=== PATIENT | male | born 1965 | race Caucasian/White ===

== ENCOUNTER 2018-06-07 11:31 | Outpatient (CLI) | payer BC ==
[2017-05-27 12:04] VITALS: O2SAT 93
== END 2018-06-07 11:32 | disposition home or self-care (01) ==
LOC: CONVCARE 11:31
PROVIDERS: ATTEND Orthopaedic Surgery
DX: S82.142D Displaced bicondylar fracture of left tibia, subsequent encounter for closed fracture with routine healing (principal)
CPT/HCPCS: 73562

== ENCOUNTER 2018-06-21 11:04 | Outpatient (CLI) | payer BC ==
[2017-05-27 12:04] VITALS: O2SAT 93
== END 2018-06-21 11:05 | disposition home or self-care (01) ==
LOC: CONVCARE 11:04
PROVIDERS: ATTEND Orthopaedic Surgery
DX: S82.142D Displaced bicondylar fracture of left tibia, subsequent encounter for closed fracture with routine healing (principal)
CPT/HCPCS: 73562

== ENCOUNTER 2018-07-12 10:12 | Outpatient (CLI) | payer BC ==
[2017-05-27 12:04] VITALS: O2SAT 93
== END 2018-07-12 10:13 | disposition home or self-care (01) ==
LOC: CONVCARE 10:12
PROVIDERS: ATTEND Orthopaedic Surgery
DX: S82.142D Displaced bicondylar fracture of left tibia, subsequent encounter for closed fracture with routine healing (principal)
CPT/HCPCS: 73562

== ENCOUNTER 2019-04-28 16:22 | Inpatient (IN) | payer BC | END 2019-05-01 13:50 | disposition home or self-care (01) | LOC: ACUTE CARE 16:22 ==